=== PATIENT | male | born 1985 | race African-American/Black ===

== ENCOUNTER 2022-05-17 18:25 | Emergency (ER) | payer SELFPAY ==
[~2022-05-17] VITALS: Ht 188 cm; Wt 91.0 kg
[2022-05-17 18:54] VITALS: BP 173/106
[2022-05-17] MEDS ORDERED: KETOROLAC 60MG/2ML VIAL IM ONE (23:15)
[2022-05-17] MEDS ORDERED: IBUP-2029 MT (23:48)
== END 2022-05-18 00:43 | disposition home or self-care (01) ==
LOC: ER 18:25
DX: R68.84 Jaw pain (principal); R03.0 Elevated blood-pressure reading, without diagnosis of hypertension
CPT/HCPCS: 96372; 99283; J1885; Z7610